=== PATIENT | female | born 1945 | race Caucasian/White ===

== ENCOUNTER 2018-07-08 06:36 | Inpatient (IN) | payer SELFPAY ==
[~2018-07-08] VITALS: Ht 165.1 cm; Wt 65.8 kg
[2018-07-08] MEDS ORDERED: [UNRECOGNIZED DRUG - OTHER] PO (06:53)
[2018-07-08] MEDS ORDERED: CALCIUM SUPPLEMENT PO (06:53)
--- NOTE | 2018-07-08 06:58 | NUR ---
ALL CLOTHING REMOVED. PT IN HOSPITAL GOWN. PT PLACED ON ALL VITALS MONITORS. EKG BEING DONE AT THIS TIME. BEDSIDE REPORT GIVEN TO RUPAL Mariee RN. GLORIA JORGENSENILS UP.
--- NOTE | 2018-07-08 06:59 | NUR ---
report received from Robbie RN, patient in bed sleeping lightly, vss on room air, ekg at bedside now.
[2018-07-08 07:33] LABS: BASOPHILS # (AUTO) 0.02 x10^3/uL (0-0.1); BASOPHILS % (AUTO) 1 % (0-1); EOSINOPHILS # (AUTO) 0.05 x10^3/uL (0-0.4); EOSINOPHILS % (AUTO) 1 % (1-7); LYMPHOCYTES # (AUTO) 0.96 x10^3/uL (1-3.4); LYMPHOCYTES % (AUTO) 20 % (22-44); MD NO; MEAN CORPUSCULAR HEMOGLOBIN 32.3 pg (27.0-34.8); MEAN CORPUSCULAR HGB CONC 32.8 g/dL (32.4-35.8); MEAN CORPUSCULAR VOLUME 98.5 fL (80-100); MEAN PLATELET VOLUME 8.8 fL (7.4-10.4); MONOCYTES # (AUTO) 0.29 x10^3/uL (0.2-0.8); MONOCYTES % (AUTO) 6 % (2-9); NEUTROPHILS # (AUTO) 3.47 x10^3/uL (1.8-6.8); NEUTROPHILS % (AUTO) 73 % (42-75); PLATELET COUNT 200 x10^3/uL (130-400); RED BLOOD COUNT 4.09 x10^6/uL (3.82-5.3); RED CELL DISTRIBUTION WIDTH 14.6 % (9.6-15.2)
--- NOTE | 2018-07-08 07:35 | NUR ---
Lab has been to bedside for draw and blood cx, patient off unit for imaging now, this RN ready to perform straight cath upon patient's return.
[2018-07-08 07:42] LABS: INTERNATIONAL NORMALIZED RATIO 1.09 (0.93-1.1); PROTHROMBIN TIME 11.5 Seconds (9.6-11.5)
[2018-07-08 07:46] LABS: ALANINE AMINOTRANSFERASE 27 U/L (12-78); ALBUMIN 3.5 g/dL (3.4-5.0); ANION GAP 10 mmol/L (5-15); CALCIUM 8.5 mg/dL (8.5-10.1); CHLORIDE 97 mmol/L (98-107)
[2018-07-08 07:51] LABS: ALKALINE PHOSPHATASE 77 U/L (45-117); CREATININE 0.92 mg/dL (0.55-1.02); TOTAL PROTEIN 7.3 g/dL (6.4-8.2)
[2018-07-08 08:05] LABS: ACETONE, SERUM Small (20mg/dL) mg/dL (Negative)
--- NOTE | 2018-07-08 08:33 | NUR ---
iv and straight caths attempted by this RN without success, entering orders for IV potassium, patient to be NPO for now, patient safety maintained and reports no pain.
[2018-07-08] MEDS ORDERED: POTASSIUM CHLORIDE 40 MEQ in SODIUM CHLORIDE 0.9% 500 ML IV ONE (09:00)
--- NOTE | 2018-07-08 09:11 | NUR ---
Straight catheter by Abbe Guerrier and this RN, purulent urine obtained with sterile technique, pericare and skin care conducted, IVs started by Abbe Guerrier, IV potassium sent from pharmacy and running now on IV pump per JUL, patient had one episode of scant brown/clear emesis, HOB lifted to 45 degrees, [facility] and at bedside, patient encouraged to cough. patient remains lethargic but slightly improved, no pain, disoriented to time but re-oriented and AOx4 now. MD updated of emesis, patient reports no nausea now, blankets provided and call light at hand
[2018-07-08 09:31] LABS: MICROSCOPIC INDICATED
[2018-07-08 09:32] LABS: CULTURE INDICATED? YES
--- NOTE | 2018-07-08 11:02 | NUR ---
patient sleeping, rouses easily to verbal stimulus, no distress, HOB remains elevated, she states she is hungry but doesn't want to try eating, remains NPO regardless, potassium infusing per MAR, call light at hand, safety maintained.
[2018-07-08] MEDS ORDERED: CEFTRIAXONE PMX 1GM/50ML 50 ML ONE (11:24)
[2018-07-08] MEDS ORDERED: CEFTRIAXONE PMX 1GM/50ML 50 ML IV ONE (11:30)
--- NOTE | 2018-07-08 11:30 | NUR ---
plan of care discussed with md sandhu, abx ordered and infusing now, no changes to patient condition at this time.
--- NOTE | 2018-07-08 11:39 | NUR ---
TASK RN: First contact with pt. Pt resting on gurney with blankets for comfort measures. Pt has PIV fluids and antibiotics infusing per EMAR. NADN. No needs expressed. All safety measures in place. Call light is within reach. Pt has unlabored respirations equal bilaterally and is on room air. Pt arouses to voice.
--- NOTE | 2018-07-08 12:54 | NUR ---
plan of care discussed with Hospitalist Isaias, aspiration risks discussed, NPO status maintained, Isaias has stated the patient is DNR status now, no acute changes noted.
[2018-07-08] MEDS ORDERED: GLUCAGON 1 MG IM PRN (13:00)
[2018-07-08] MEDS ORDERED: DEXTROSE 50%, 50ML SYRINGE IVPush PRN (13:00)
[2018-07-08] MEDS ORDERED: DEXTROSE 4 GM TAB.CHEW PO PRN (13:00)
--- NOTE | 2018-07-08 13:44 | NUR ---
report to Abbe Marin, patient RTG status now
--- NOTE | 2018-07-08 14:04 | NUR ---
patient going upstairs by orlando wood
[2018-07-08 14:46] VITALS: BP 149/93
[2018-07-08] MEDS: BISACODYL 10 MG SUPP PR SCH (17:33)
[2018-07-08] MEDS: ENOXAPARIN 40 MG/0.4 ML SQ SCH (17:34)
[2018-07-08] MEDS: D5%-0.45NACL+KCL 40MEQ 1,000 ML IV SCH (17:34)
[2018-07-08 18:35] LABS: FREE T4 (FREE THYROXINE) < 0.10 ng/dL (0.76-1.46)
[2018-07-08 19:11] VITALS: BP 142/88
[2018-07-08] MEDS: SODIUM CHLORIDE FLUSH 10ML SYR IVF SCH (21:00)
[2018-07-08] MEDS ORDERED: LEVOTHYROXINE 100 MCG INJ IVPush SCH (21:30)
[2018-07-09 01:55] VITALS: BP 136/82
[2018-07-09] MEDS: D5%-0.45NACL+KCL 40MEQ 1,000 ML IV SCH (04:06)
[2018-07-09 06:09] LABS: BASOPHILS # (AUTO) 0.02 x10^3/uL (0-0.1); BASOPHILS % (AUTO) 0 % (0-1); EOSINOPHILS # (AUTO) 0.02 x10^3/uL (0-0.4); EOSINOPHILS % (AUTO) 0 % (1-7); LYMPHOCYTES # (AUTO) 0.57 x10^3/uL (1-3.4); LYMPHOCYTES % (AUTO) 10 % (22-44); MD NO; MEAN CORPUSCULAR HEMOGLOBIN 32.7 pg (27.0-34.8); MEAN CORPUSCULAR HGB CONC 33.2 g/dL (32.4-35.8); MEAN CORPUSCULAR VOLUME 98.3 fL (80-100); MEAN PLATELET VOLUME 8.2 fL (7.4-10.4); MONOCYTES # (AUTO) 0.54 x10^3/uL (0.2-0.8); MONOCYTES % (AUTO) 10 % (2-9); NEUTROPHILS # (AUTO) 4.37 x10^3/uL (1.8-6.8); NEUTROPHILS % (AUTO) 79 % (42-75); PLATELET COUNT 211 x10^3/uL (130-400); RED BLOOD COUNT 3.62 x10^6/uL (3.82-5.3); RED CELL DISTRIBUTION WIDTH 14.6 % (9.6-15.2)
[2018-07-09 06:22] LABS: ANION GAP 7 mmol/L (5-15); CALCIUM 8.6 mg/dL (8.5-10.1); CHLORIDE 101 mmol/L (98-107); CREATININE 0.87 mg/dL (0.55-1.02)
[2018-07-09 06:34] VITALS: BP 154/83
[2018-07-09] MEDS ORDERED: LEVOTHYROXINE 100 MCG INJ IVPush SCH ×2 (09:00→14:00)
[2018-07-09] MEDS: SODIUM CHLORIDE FLUSH 10ML SYR IVF SCH ×2 (09:00→21:00)
[2018-07-09] MEDS: SENNA/DOCUSATE TABLET PO SCH (09:41)
[2018-07-09 12:23] VITALS: BP 120/82
[2018-07-09] MEDS: CEFTRIAXONE PMX 1GM/50ML 50 ML IV SCH (12:55)
[2018-07-09] MEDS: SODIUM CHLORIDE 0.9% 1,000 ML IV SCH (15:07)
[2018-07-09] MEDS: ENOXAPARIN 40 MG/0.4 ML SQ SCH (15:07)
[2018-07-09] MEDS: BISACODYL 10 MG SUPP PR SCH (17:00)
[2018-07-09 20:00] VITALS: BP 132/76
[2018-07-10 00:30] VITALS: BP 128/87
[2018-07-10] MEDS: SODIUM CHLORIDE 0.9% 1,000 ML IV SCH ×2 (03:45→16:23)
[2018-07-10 05:32] LABS: BASOPHILS # (AUTO) 0.01 x10^3/uL (0-0.1); BASOPHILS % (AUTO) 0 % (0-1); EOSINOPHILS # (AUTO) 0.06 x10^3/uL (0-0.4); EOSINOPHILS % (AUTO) 1 % (1-7); LYMPHOCYTES # (AUTO) 0.79 x10^3/uL (1-3.4); LYMPHOCYTES % (AUTO) 16 % (22-44); MD NO; MEAN CORPUSCULAR HEMOGLOBIN 33.5 pg (27.0-34.8); MEAN CORPUSCULAR VOLUME 98.4 fL (80-100); MEAN PLATELET VOLUME 8.8 fL (7.4-10.4); MONOCYTES # (AUTO) 0.49 x10^3/uL (0.2-0.8); MONOCYTES % (AUTO) 10 % (2-9); NEUTROPHILS # (AUTO) 3.73 x10^3/uL (1.8-6.8); NEUTROPHILS % (AUTO) 74 % (42-75); PLATELET COUNT 223 x10^3/uL (130-400); RED BLOOD COUNT 3.52 x10^6/uL (3.82-5.3); RED CELL DISTRIBUTION WIDTH 14.9 % (9.6-15.2)
[2018-07-10 05:37] LABS: ANION GAP 5 mmol/L (5-15); CALCIUM 8.3 mg/dL (8.5-10.1); CHLORIDE 104 mmol/L (98-107); CREATININE 0.85 mg/dL (0.55-1.02)
[2018-07-10 07:30] VITALS: BP 153/94
[2018-07-10] MEDS: SENNA/DOCUSATE TABLET PO SCH (09:00)
[2018-07-10] MEDS: BISACODYL 10 MG SUPP PR SCH (09:00)
[2018-07-10] MEDS: SODIUM CHLORIDE FLUSH 10ML SYR IVF SCH ×2 (09:00→20:53)
[2018-07-10] MEDS: ERGOCALCIFEROL 50,000 UNIT CAPSULE PO SCH (10:16)
[2018-07-10] MEDS: CEFTRIAXONE PMX 1GM/50ML 50 ML IV SCH (12:41)
[2018-07-10 13:20] VITALS: BP 138/87
[2018-07-10] MEDS: ENOXAPARIN 40 MG/0.4 ML SQ SCH (16:22)
[2018-07-10 18:33] VITALS: BP 169/98
[2018-07-10] MEDS ORDERED: hydrALAzine 20 MG/ML, 1ML IV PRN (19:30)
[2018-07-11 00:51] VITALS: BP 117/76
[2018-07-11 00:52] VITALS: BP 144/87
[2018-07-11 05:17] LABS: ANION GAP 6 mmol/L (5-15); CALCIUM 7.9 mg/dL (8.5-10.1); CHLORIDE 105 mmol/L (98-107); CREATININE 0.83 mg/dL (0.55-1.02)
[2018-07-11] MEDS: LEVOTHYROXINE 100 MCG TABLET PO SCH (05:54)
[2018-07-11 08:12] VITALS: BP 139/93
[2018-07-11] MEDS: SODIUM CHLORIDE FLUSH 10ML SYR IVF SCH ×2 (08:18→22:38)
[2018-07-11] MEDS: SENNA/DOCUSATE TABLET PO SCH (08:19)
[2018-07-11] MEDS: BISACODYL 10 MG SUPP PR SCH (08:19)
[2018-07-11] MEDS ORDERED: LEVOTHYROXINE 100 MCG INJ IVPush SCH (09:00)
[2018-07-11] MEDS: CEFTRIAXONE PMX 1GM/50ML 50 ML IV SCH (12:31)
[2018-07-11] MEDS: ENOXAPARIN 40 MG/0.4 ML SQ SCH (14:38)
[2018-07-11 15:45] VITALS: BP 153/84
[2018-07-11 21:39] VITALS: BP 165/104
[2018-07-11 22:11] VITALS: BP 149/89
[2018-07-12 02:07] VITALS: BP 155/88
[2018-07-12 05:01] LABS: BASOPHILS # (AUTO) 0.03 x10^3/uL (0-0.1); BASOPHILS % (AUTO) 1 % (0-1); EOSINOPHILS # (AUTO) 0.15 x10^3/uL (0-0.4); EOSINOPHILS % (AUTO) 2 % (1-7); LYMPHOCYTES # (AUTO) 0.84 x10^3/uL (1-3.4); LYMPHOCYTES % (AUTO) 13 % (22-44); MD NO; MEAN CORPUSCULAR HEMOGLOBIN 33.6 pg (27.0-34.8); MEAN CORPUSCULAR VOLUME 98.7 fL (80-100); MEAN PLATELET VOLUME 8.4 fL (7.4-10.4); MONOCYTES # (AUTO) 0.51 x10^3/uL (0.2-0.8); MONOCYTES % (AUTO) 8 % (2-9); NEUTROPHILS # (AUTO) 4.93 x10^3/uL (1.8-6.8); NEUTROPHILS % (AUTO) 76 % (42-75); PLATELET COUNT 227 x10^3/uL (130-400); RED BLOOD COUNT 3.15 x10^6/uL (3.82-5.3); RED CELL DISTRIBUTION WIDTH 15.1 % (9.6-15.2)
[2018-07-12 05:06] LABS: ALBUMIN 2.9 g/dL (3.4-5.0); ANION GAP 6 mmol/L (5-15); CALCIUM 7.9 mg/dL (8.5-10.1); CHLORIDE 107 mmol/L (98-107); CREATININE 0.75 mg/dL (0.55-1.02)
[2018-07-12] MEDS: LEVOTHYROXINE 100 MCG TABLET PO SCH (05:53)
[2018-07-12 06:33] VITALS: BP 168/67
[2018-07-12] MEDS ORDERED: MAGNESIUM SULFATE PMX 2GM/50ML 50 ML IV ONE (08:30)
[2018-07-12] MEDS: BISACODYL 10 MG SUPP PR SCH (09:00)
[2018-07-12] MEDS: SODIUM CHLORIDE FLUSH 10ML SYR IVF SCH ×2 (10:02→20:45)
[2018-07-12] MEDS: SENNA/DOCUSATE TABLET PO SCH (10:03)
[2018-07-12] MEDS ORDERED: CEFTRIAXONE PMX 1GM/50ML 50 ML IV SCH (12:00)
[2018-07-12] MEDS: ENOXAPARIN 40 MG/0.4 ML SQ SCH (15:25)
[2018-07-12 16:10] VITALS: BP 155/88
[2018-07-12 19:40] VITALS: BP 155/75
[2018-07-13 03:07] VITALS: BP 155/77
[2018-07-13] MEDS: LEVOTHYROXINE 100 MCG TABLET PO SCH (05:40)
[2018-07-13 06:04] LABS: BASOPHILS # (AUTO) 0.03 x10^3/uL (0-0.1); BASOPHILS % (AUTO) 1 % (0-1); EOSINOPHILS # (AUTO) 0.11 x10^3/uL (0-0.4); EOSINOPHILS % (AUTO) 2 % (1-7); LYMPHOCYTES # (AUTO) 0.81 x10^3/uL (1-3.4); LYMPHOCYTES % (AUTO) 15 % (22-44); MD NO; MEAN CORPUSCULAR HEMOGLOBIN 32.9 pg (27.0-34.8); MEAN CORPUSCULAR HGB CONC 33.5 g/dL (32.4-35.8); MEAN CORPUSCULAR VOLUME 98.3 fL (80-100); MEAN PLATELET VOLUME 8.6 fL (7.4-10.4); MONOCYTES # (AUTO) 0.53 x10^3/uL (0.2-0.8); MONOCYTES % (AUTO) 10 % (2-9); NEUTROPHILS # (AUTO) 4.06 x10^3/uL (1.8-6.8); NEUTROPHILS % (AUTO) 73 % (42-75); PLATELET COUNT 225 x10^3/uL (130-400); RED BLOOD COUNT 3.17 x10^6/uL (3.82-5.3)
[2018-07-13 08:10] VITALS: BP 155/89
[2018-07-13] MEDS: SENNA/DOCUSATE TABLET PO SCH (08:19)
[2018-07-13] MEDS: SODIUM CHLORIDE FLUSH 10ML SYR IVF SCH ×2 (08:20→20:51)
[2018-07-13 12:09] VITALS: BP 118/62
[2018-07-13] MEDS: ENOXAPARIN 40 MG/0.4 ML SQ SCH (14:59)
[2018-07-13] MEDS: BISACODYL 10 MG SUPP PR SCH (15:06)
[2018-07-13 21:27] VITALS: BP 147/91
[2018-07-14 00:56] VITALS: BP 143/90
[2018-07-14] MEDS: LEVOTHYROXINE 100 MCG TABLET PO SCH (05:19)
[2018-07-14 07:56] VITALS: BP 171/87
[2018-07-14] MEDS: SODIUM CHLORIDE FLUSH 10ML SYR IVF SCH ×2 (08:59→21:08)
[2018-07-14] MEDS: SENNA/DOCUSATE TABLET PO SCH ×2 (08:59→09:00)
[2018-07-14] MEDS: BISACODYL 10 MG SUPP PR SCH (09:00)
[2018-07-14 14:06] VITALS: BP 160/89
[2018-07-14] MEDS: ENOXAPARIN 40 MG/0.4 ML SQ SCH (15:17)
--- NOTE | 2018-07-14 17:33 | NUR ---
Intiated green activity sheet: 1) up in chair for meals 2) walk with nurses and walker 1-3 times a day Addendum: 07/14/18 at 1733 by Kaila Ivan PT Amended: Links added.
[2018-07-14 18:25] VITALS: BP 165/95
[2018-07-15 00:56] VITALS: BP 150/88
[2018-07-15] MEDS: LEVOTHYROXINE 100 MCG TABLET PO SCH (05:06)
[2018-07-15] MEDS: SODIUM CHLORIDE FLUSH 10ML SYR IVF SCH ×2 (07:38→19:55)
[2018-07-15] MEDS: CEFDINIR 300 MG CAPSULE PO SCH ×2 (07:38→19:55)
[2018-07-15] MEDS: BISACODYL 10 MG SUPP PR SCH (07:39)
[2018-07-15] MEDS: SENNA/DOCUSATE TABLET PO SCH (07:39)
[2018-07-15 07:49] LABS: ANION GAP 5 mmol/L (5-15); CALCIUM 8.1 mg/dL (8.5-10.1); CHLORIDE 107 mmol/L (98-107); CREATININE 0.63 mg/dL (0.55-1.02)
[2018-07-15 08:00] VITALS: BP 159/88
[2018-07-15 14:00] VITALS: BP 136/89
[2018-07-15] MEDS: ENOXAPARIN 40 MG/0.4 ML SQ SCH (14:38)
[2018-07-15 18:56] VITALS: BP 155/86
[2018-07-16] VITALS: BP 135/77
[2018-07-16] MEDS: LEVOTHYROXINE 100 MCG TABLET PO SCH (05:14)
[2018-07-16 06:58] VITALS: BP 156/88
[2018-07-16] MEDS: SODIUM CHLORIDE FLUSH 10ML SYR IVF SCH ×2 (08:05→21:00)
[2018-07-16] MEDS: CEFDINIR 300 MG CAPSULE PO SCH ×2 (08:05→20:22)
[2018-07-16] MEDS: SENNA/DOCUSATE TABLET PO SCH (08:06)
[2018-07-16] MEDS: BISACODYL 10 MG SUPP PR SCH (08:06)
[2018-07-16 12:45] VITALS: BP 143/81
[2018-07-16] MEDS: ENOXAPARIN 40 MG/0.4 ML SQ SCH (14:49)
[2018-07-16] MEDS ORDERED: LEVO100T PO (17:17)
[2018-07-16] MEDS ORDERED: ERGO500017 PO (17:17)
[2018-07-16] MEDS ORDERED: CEFD300C37 PO ×2 (17:17)
[2018-07-16 19:12] VITALS: BP 137/86
[2018-07-17 02:34] VITALS: BP 162/92
[2018-07-17] MEDS: ACETAMINOPHEN 325 MG TABLET PO PRN (05:33)
[2018-07-17] MEDS: LEVOTHYROXINE 100 MCG TABLET PO SCH (05:33)
[2018-07-17 06:58] VITALS: BP 149/82
[2018-07-17] MEDS: SENNA/DOCUSATE TABLET PO SCH (07:46)
[2018-07-17] MEDS: BISACODYL 10 MG SUPP PR SCH (07:46)
[2018-07-17] MEDS: ERGOCALCIFEROL 50,000 UNIT CAPSULE PO SCH (07:50)
[2018-07-17] MEDS: SODIUM CHLORIDE FLUSH 10ML SYR IVF SCH ×2 (07:51→23:15)
[2018-07-17 09:58] LABS: BASOPHILS # (AUTO) 0.06 x10^3/uL (0-0.1); BASOPHILS % (AUTO) 1 % (0-1); EOSINOPHILS # (AUTO) 0.11 x10^3/uL (0-0.4); EOSINOPHILS % (AUTO) 2 % (1-7); LYMPHOCYTES % (AUTO) 16 % (22-44); MD NO; MEAN CORPUSCULAR VOLUME 99.8 fL (80-100); MEAN PLATELET VOLUME 7.8 fL (7.4-10.4); MONOCYTES # (AUTO) 0.68 x10^3/uL (0.2-0.8); MONOCYTES % (AUTO) 11 % (2-9); NEUTROPHILS # (AUTO) 4.48 x10^3/uL (1.8-6.8); NEUTROPHILS % (AUTO) 71 % (42-75); PLATELET COUNT 354 x10^3/uL (130-400); RED BLOOD COUNT 3.22 x10^6/uL (3.82-5.3); RED CELL DISTRIBUTION WIDTH 15.6 % (9.6-15.2)
[2018-07-17 10:07] LABS: ANION GAP 7 mmol/L (5-15); CALCIUM 8.1 mg/dL (8.5-10.1); CHLORIDE 104 mmol/L (98-107)
[2018-07-17 10:19] LABS: CREATININE 0.65 mg/dL (0.55-1.02)
[2018-07-17 13:35] VITALS: BP 148/83
[2018-07-17] MEDS: ENOXAPARIN 40 MG/0.4 ML SQ SCH (15:03)
[2018-07-17 20:38] VITALS: BP 153/82
[2018-07-18 01:55] VITALS: BP 132/80
[2018-07-18] MEDS: ACETAMINOPHEN 325 MG TABLET PO PRN (05:39)
[2018-07-18] MEDS: LEVOTHYROXINE 100 MCG TABLET PO SCH (05:39)
[2018-07-18 08:41] VITALS: BP 158/91
[2018-07-18] MEDS: SENNA/DOCUSATE TABLET PO SCH (09:00)
[2018-07-18] MEDS: BISACODYL 10 MG SUPP PR SCH (09:00)
[2018-07-18] MEDS: SODIUM CHLORIDE FLUSH 10ML SYR IVF SCH ×2 (09:00→19:39)
[2018-07-18 13:45] VITALS: BP 127/98
[2018-07-18] MEDS: ENOXAPARIN 40 MG/0.4 ML SQ SCH (16:07)
[2018-07-18 20:22] VITALS: BP 141/83
[2018-07-19 01:14] VITALS: BP 164/89
[2018-07-19] MEDS: LEVOTHYROXINE 100 MCG TABLET PO SCH (05:46)
[2018-07-19] MEDS: ACETAMINOPHEN 325 MG TABLET PO PRN (05:50)
[2018-07-19 06:52] VITALS: BP 157/86
[2018-07-19] MEDS: SENNA/DOCUSATE TABLET PO SCH (08:34)
[2018-07-19] MEDS: BISACODYL 10 MG SUPP PR SCH (08:34)
[2018-07-19] MEDS: SODIUM CHLORIDE FLUSH 10ML SYR IVF SCH (08:34)
[2018-07-19 14:20] VITALS: BP 133/70
[2018-07-19] MEDS: ENOXAPARIN 40 MG/0.4 ML SQ SCH (16:23)
[2018-07-20] MEDS: SODIUM CHLORIDE FLUSH 10ML SYR IVF SCH ×3 (00:26→21:46)
[2018-07-20 01:40] VITALS: BP 162/84
[2018-07-20] MEDS: LEVOTHYROXINE 100 MCG TABLET PO SCH (06:20)
[2018-07-20 07:00] VITALS: BP 166/86
[2018-07-20] MEDS: SENNA/DOCUSATE TABLET PO SCH (08:56)
[2018-07-20] MEDS: BISACODYL 10 MG SUPP PR SCH (08:56)
[2018-07-20 14:00] VITALS: BP 158/84
[2018-07-20] MEDS: ENOXAPARIN 40 MG/0.4 ML SQ SCH (14:30)
[2018-07-20 21:00] VITALS: BP 155/83
[2018-07-21 01:06] VITALS: BP 149/88
[2018-07-21] MEDS: LEVOTHYROXINE 100 MCG TABLET PO SCH (05:14)
[2018-07-21] MEDS: SODIUM CHLORIDE FLUSH 10ML SYR IVF SCH ×2 (08:49→19:25)
[2018-07-21] MEDS: BISACODYL 10 MG SUPP PR SCH (08:49)
[2018-07-21] MEDS: SENNA/DOCUSATE TABLET PO SCH (08:49)
[2018-07-21 13:01] VITALS: BP 155/86
[2018-07-21] MEDS: ENOXAPARIN 40 MG/0.4 ML SQ SCH (15:19)
[2018-07-21] MEDS: ACETAMINOPHEN 325 MG TABLET PO PRN (19:24)
[2018-07-21 21:00] VITALS: BP 150/82
[2018-07-22 03:15] VITALS: BP 152/83
[2018-07-22] MEDS: LEVOTHYROXINE 100 MCG TABLET PO SCH (05:19)
[2018-07-22 07:10] VITALS: BP 154/83
[2018-07-22] MEDS: BISACODYL 10 MG SUPP PR SCH (09:00)
[2018-07-22] MEDS: SENNA/DOCUSATE TABLET PO SCH (09:00)
[2018-07-22] MEDS: SODIUM CHLORIDE FLUSH 10ML SYR IVF SCH ×2 (10:00→20:51)
[2018-07-22 12:37] VITALS: BP 143/75
[2018-07-22] MEDS: ENOXAPARIN 40 MG/0.4 ML SQ SCH (14:48)
[2018-07-22 19:50] VITALS: BP 147/82
[2018-07-23 01:38] VITALS: BP 165/86
[2018-07-23] MEDS: LEVOTHYROXINE 100 MCG TABLET PO SCH (05:07)
[2018-07-23 06:20] VITALS: BP 156/89
[2018-07-23] MEDS: BISACODYL 10 MG SUPP PR SCH (08:02)
[2018-07-23] MEDS: SODIUM CHLORIDE FLUSH 10ML SYR IVF SCH ×2 (08:02→20:19)
[2018-07-23] MEDS: SENNA/DOCUSATE TABLET PO SCH (08:02)
[2018-07-23 13:18] VITALS: BP 137/76
[2018-07-23] MEDS: ENOXAPARIN 40 MG/0.4 ML SQ SCH (15:11)
[2018-07-23] MEDS: ACETAMINOPHEN 325 MG TABLET PO PRN ×2 (15:11→22:25)
[2018-07-23 19:27] VITALS: BP 126/73
[2018-07-24 01:04] VITALS: BP 134/79
[2018-07-24] MEDS: LEVOTHYROXINE 100 MCG TABLET PO SCH (05:04)
[2018-07-24 07:20] VITALS: BP 163/89
[2018-07-24] MEDS: BISACODYL 10 MG SUPP PR SCH (09:00)
[2018-07-24] MEDS: SENNA/DOCUSATE TABLET PO SCH (09:00)
[2018-07-24] MEDS: SODIUM CHLORIDE FLUSH 10ML SYR IVF SCH ×2 (11:25→19:09)
[2018-07-24] MEDS: ERGOCALCIFEROL 50,000 UNIT CAPSULE PO SCH (11:26)
[2018-07-24 13:18] VITALS: BP 136/77
[2018-07-24] MEDS: ENOXAPARIN 40 MG/0.4 ML SQ SCH (14:58)
[2018-07-24 18:49] VITALS: BP 156/88
[2018-07-25 01:20] VITALS: BP 139/92
[2018-07-25] MEDS: LEVOTHYROXINE 100 MCG TABLET PO SCH (05:01)
[2018-07-25 05:09] LABS: CREATININE 0.55 mg/dL (0.55-1.02)
[2018-07-25 07:00] VITALS: BP 160/83
[2018-07-25] MEDS: SENNA/DOCUSATE TABLET PO SCH (09:00)
[2018-07-25] MEDS: BISACODYL 10 MG SUPP PR SCH (09:00)
[2018-07-25 12:41] VITALS: BP 163/86
[2018-07-25] MEDS: ENOXAPARIN 40 MG/0.4 ML SQ SCH (16:49)
[2018-07-25] MEDS: SODIUM CHLORIDE FLUSH 10ML SYR IVF SCH ×2 (16:50→21:25)
[2018-07-25 18:32] VITALS: BP 144/85
[2018-07-26 00:13] VITALS: BP 127/76
[2018-07-26] MEDS: LEVOTHYROXINE 100 MCG TABLET PO SCH (05:07)
[2018-07-26 08:23] VITALS: BP 166/93
[2018-07-26] MEDS: BISACODYL 10 MG SUPP PR SCH (08:39)
[2018-07-26] MEDS: SENNA/DOCUSATE TABLET PO SCH (08:39)
[2018-07-26] MEDS: SODIUM CHLORIDE FLUSH 10ML SYR IVF SCH ×2 (08:40→22:38)
[2018-07-26 14:26] VITALS: BP 146/83
[2018-07-26] MEDS: ENOXAPARIN 40 MG/0.4 ML SQ SCH (16:41)
[2018-07-26 19:51] VITALS: BP 136/82
[2018-07-27 01:47] VITALS: BP 129/78
[2018-07-27] MEDS: LEVOTHYROXINE 100 MCG TABLET PO SCH (06:13)
[2018-07-27 06:58] VITALS: BP 155/81
[2018-07-27] MEDS: SENNA/DOCUSATE TABLET PO SCH (09:00)
[2018-07-27] MEDS: BISACODYL 10 MG SUPP PR SCH (09:00)
[2018-07-27] MEDS: SODIUM CHLORIDE FLUSH 10ML SYR IVF SCH ×2 (09:00→23:50)
[2018-07-27 12:39] VITALS: BP 135/88
[2018-07-27] MEDS: ENOXAPARIN 40 MG/0.4 ML SQ SCH (16:35)
[2018-07-27 19:04] VITALS: BP 128/82
[2018-07-28 01:54] VITALS: BP 119/79
[2018-07-28 05:13] LABS: CREATININE 0.66 mg/dL (0.55-1.02)
[2018-07-28] MEDS: LEVOTHYROXINE 100 MCG TABLET PO SCH (05:41)
[2018-07-28 07:15] VITALS: BP 149/82
[2018-07-28] MEDS: BISACODYL 10 MG SUPP PR SCH (08:52)
[2018-07-28] MEDS: SODIUM CHLORIDE FLUSH 10ML SYR IVF SCH ×2 (08:52→20:31)
[2018-07-28] MEDS: SENNA/DOCUSATE TABLET PO SCH (08:52)
[2018-07-28 12:01] VITALS: BP 132/75
[2018-07-28] MEDS: ENOXAPARIN 40 MG/0.4 ML SQ SCH (16:28)
[2018-07-28 19:43] VITALS: BP 143/78
[2018-07-29 01:44] VITALS: BP_SYST 146; BP_SYST 157; BP_DIAS 76; BP_DIAS 87
[2018-07-29] MEDS: LEVOTHYROXINE 100 MCG TABLET PO SCH (05:45)
[2018-07-29 06:35] VITALS: BP 145/79
[2018-07-29] MEDS: SODIUM CHLORIDE FLUSH 10ML SYR IVF SCH ×2 (07:43→19:21)
[2018-07-29] MEDS: BISACODYL 10 MG SUPP PR SCH (07:43)
[2018-07-29] MEDS: SENNA/DOCUSATE TABLET PO SCH (07:43)
[2018-07-29 13:00] VITALS: BP 167/105
[2018-07-29 15:29] VITALS: BP 127/72
[2018-07-29] MEDS: ENOXAPARIN 40 MG/0.4 ML SQ SCH (16:27)
[2018-07-29 20:18] VITALS: BP 134/81
[2018-07-30 01:30] VITALS: BP 129/79
[2018-07-30] MEDS: LEVOTHYROXINE 100 MCG TABLET PO SCH (05:23)
[2018-07-30 06:23] LABS: CALCIUM 8.5 mg/dL (8.5-10.1); CHLORIDE 108 mmol/L (98-107)
[2018-07-30 06:37] LABS: ANION GAP 5 mmol/L (5-15); CREATININE 0.68 mg/dL (0.55-1.02); FREE T4 (FREE THYROXINE) 1.08 ng/dL (0.76-1.46)
[2018-07-30] MEDS ORDERED: BISACODYL 10 MG SUPP PR PRN (07:30)
[2018-07-30 09:18] VITALS: BP 150/82
[2018-07-30 15:21] VITALS: BP 166/96
[2018-07-30] MEDS: ACETAMINOPHEN 325 MG TABLET PO PRN (15:37)
[2018-07-30] MEDS: SODIUM CHLORIDE FLUSH 10ML SYR IVF SCH ×2 (15:38→21:00)
[2018-07-30] MEDS: ENOXAPARIN 40 MG/0.4 ML SQ SCH (18:16)
[2018-07-30] MEDS: CARVEDILOL 3.125 MG TABLET PO SCH (18:16)
[2018-07-30 18:38] VITALS: BP 145/78
[2018-07-30] MEDS: SENNA/DOCUSATE TABLET PO SCH (21:41)
[2018-07-31 00:07] VITALS: BP 135/77
[2018-07-31 05:55] LABS: CREATININE 0.59 mg/dL (0.55-1.02)
[2018-07-31] MEDS: CARVEDILOL 3.125 MG TABLET PO SCH ×2 (05:57→17:13)
[2018-07-31] MEDS: LEVOTHYROXINE 100 MCG TABLET PO SCH (05:57)
[2018-07-31 07:35] VITALS: BP 158/83
[2018-07-31 13:00] VITALS: BP 140/82
[2018-07-31] MEDS: ERGOCALCIFEROL 50,000 UNIT CAPSULE PO SCH (13:27)
[2018-07-31] MEDS: SODIUM CHLORIDE FLUSH 10ML SYR IVF SCH ×2 (13:27→21:10)
[2018-07-31] MEDS: ENOXAPARIN 40 MG/0.4 ML SQ SCH (17:13)
[2018-07-31 19:46] VITALS: BP 132/75
[2018-07-31] MEDS: SENNA/DOCUSATE TABLET PO SCH (21:00)
[2018-08-01 00:15] VITALS: BP 139/78
[2018-08-01] MEDS: CARVEDILOL 3.125 MG TABLET PO SCH ×2 (05:50→20:31)
[2018-08-01] MEDS: LEVOTHYROXINE 100 MCG TABLET PO SCH (05:50)
[2018-08-01 07:20] VITALS: BP 137/73
[2018-08-01] MEDS: SODIUM CHLORIDE FLUSH 10ML SYR IVF SCH ×2 (08:55→20:32)
[2018-08-01 14:00] VITALS: BP 121/70
[2018-08-01 19:00] VITALS: BP 142/78
[2018-08-01] MEDS: ENOXAPARIN 40 MG/0.4 ML SQ SCH (20:31)
[2018-08-01] MEDS: SENNA/DOCUSATE TABLET PO SCH (20:31)
[2018-08-02 00:11] VITALS: BP 129/71
[2018-08-02] MEDS: LEVOTHYROXINE 100 MCG TABLET PO SCH (05:44)
[2018-08-02] MEDS: CARVEDILOL 3.125 MG TABLET PO SCH ×2 (05:44→17:52)
[2018-08-02 08:00] VITALS: BP 121/70
[2018-08-02] MEDS: SODIUM CHLORIDE FLUSH 10ML SYR IVF SCH ×2 (09:00→20:26)
[2018-08-02 15:51] VITALS: BP 129/71
[2018-08-02] MEDS: ENOXAPARIN 40 MG/0.4 ML SQ SCH (17:52)
[2018-08-02 18:15] VITALS: BP 143/82
[2018-08-02] MEDS: SENNA/DOCUSATE TABLET PO SCH (20:26)
[2018-08-03] VITALS: BP 123/75
[2018-08-03] MEDS: CARVEDILOL 3.125 MG TABLET PO SCH ×2 (06:10→18:23)
[2018-08-03] MEDS: LEVOTHYROXINE 100 MCG TABLET PO SCH (06:11)
[2018-08-03 07:34] VITALS: BP 137/56
[2018-08-03] MEDS: SODIUM CHLORIDE FLUSH 10ML SYR IVF SCH ×2 (10:02→19:43)
[2018-08-03 12:31] VITALS: BP 155/76
[2018-08-03] MEDS: ENOXAPARIN 40 MG/0.4 ML SQ SCH (18:23)
[2018-08-03] MEDS: SENNA/DOCUSATE TABLET PO SCH (19:42)
[2018-08-03 19:47] VITALS: BP 110/70
[2018-08-03] MEDS: ACETAMINOPHEN 325 MG TABLET PO PRN (19:55)
[2018-08-04 01:13] VITALS: BP 120/68
[2018-08-04] MEDS: LEVOTHYROXINE 100 MCG TABLET PO SCH (05:54)
[2018-08-04] MEDS: CARVEDILOL 3.125 MG TABLET PO SCH ×2 (05:54→17:50)
[2018-08-04 06:38] VITALS: BP 139/77
[2018-08-04] MEDS: SODIUM CHLORIDE FLUSH 10ML SYR IVF SCH ×2 (09:00→20:24)
[2018-08-04 12:02] VITALS: BP 132/73
[2018-08-04] MEDS: ENOXAPARIN 40 MG/0.4 ML SQ SCH (17:51)
[2018-08-04 20:00] VITALS: BP 113/65
[2018-08-04] MEDS: SENNA/DOCUSATE TABLET PO SCH (20:24)
[2018-08-05 01:28] VITALS: BP 149/84
[2018-08-05 06:23] VITALS: BP 146/82
[2018-08-05] MEDS: CARVEDILOL 3.125 MG TABLET PO SCH ×2 (06:24→17:28)
[2018-08-05] MEDS: LEVOTHYROXINE 100 MCG TABLET PO SCH (06:24)
[2018-08-05] MEDS: SODIUM CHLORIDE FLUSH 10ML SYR IVF SCH ×2 (09:57→20:03)
[2018-08-05 14:15] VITALS: BP 116/75
[2018-08-05] MEDS: ENOXAPARIN 40 MG/0.4 ML SQ SCH (17:28)
[2018-08-05 19:03] VITALS: BP 129/76
[2018-08-05] MEDS: SENNA/DOCUSATE TABLET PO SCH (20:07)
[2018-08-06 01:26] VITALS: BP 136/73
[2018-08-06] MEDS: CARVEDILOL 3.125 MG TABLET PO SCH ×2 (06:19→18:22)
[2018-08-06] MEDS: LEVOTHYROXINE 100 MCG TABLET PO SCH (06:19)
[2018-08-06 07:18] VITALS: BP 129/77
[2018-08-06] MEDS: SODIUM CHLORIDE FLUSH 10ML SYR IVF SCH ×2 (09:00→21:00)
[2018-08-06 12:31] VITALS: BP 131/71
[2018-08-06] MEDS: ENOXAPARIN 40 MG/0.4 ML SQ SCH (17:57)
[2018-08-06 18:37] VITALS: BP 148/75
[2018-08-06] MEDS: SENNA/DOCUSATE TABLET PO SCH (21:00)
[2018-08-07 01:35] VITALS: BP 151/80
[2018-08-07] MEDS: LEVOTHYROXINE 100 MCG TABLET PO SCH (05:41)
[2018-08-07] MEDS: CARVEDILOL 3.125 MG TABLET PO SCH ×2 (05:41→17:30)
[2018-08-07 07:47] VITALS: BP 181/71
[2018-08-07] MEDS: SODIUM CHLORIDE FLUSH 10ML SYR IVF SCH ×2 (09:00→19:50)
[2018-08-07] MEDS: ERGOCALCIFEROL 50,000 UNIT CAPSULE PO SCH (09:50)
[2018-08-07 14:00] VITALS: BP 118/70
[2018-08-07] MEDS: LISINOPRIL 5 MG TABLET PO SCH (14:00)
[2018-08-07] MEDS: ENOXAPARIN 40 MG/0.4 ML SQ SCH (17:30)
[2018-08-07] MEDS: SENNA/DOCUSATE TABLET PO SCH (19:50)
[2018-08-07 19:58] VITALS: BP 111/59
[2018-08-08 00:35] VITALS: BP 143/75
[2018-08-08 05:22] LABS: CREATININE 0.56 mg/dL (0.55-1.02)
[2018-08-08] MEDS: LEVOTHYROXINE 100 MCG TABLET PO SCH (06:07)
[2018-08-08] MEDS: CARVEDILOL 3.125 MG TABLET PO SCH ×2 (06:07→18:17)
[2018-08-08 06:59] VITALS: BP 143/78
[2018-08-08] MEDS: LISINOPRIL 5 MG TABLET PO SCH (08:50)
[2018-08-08] MEDS: SODIUM CHLORIDE FLUSH 10ML SYR IVF SCH ×2 (08:50→21:00)
[2018-08-08 14:23] VITALS: BP 121/70
[2018-08-08] MEDS: ENOXAPARIN 40 MG/0.4 ML SQ SCH (18:18)
[2018-08-08 19:23] VITALS: BP 116/67
[2018-08-08] MEDS: SENNA/DOCUSATE TABLET PO SCH (21:03)
[2018-08-09 00:17] VITALS: BP 119/77
[2018-08-09 05:30] VITALS: BP 149/82
[2018-08-09] MEDS: LEVOTHYROXINE 100 MCG TABLET PO SCH (05:38)
[2018-08-09] MEDS: CARVEDILOL 3.125 MG TABLET PO SCH ×2 (05:38→17:45)
[2018-08-09 06:42] VITALS: BP 120/70
[2018-08-09] MEDS: LISINOPRIL 5 MG TABLET PO SCH (09:56)
[2018-08-09] MEDS: SODIUM CHLORIDE FLUSH 10ML SYR IVF SCH ×2 (09:56→21:37)
[2018-08-09 13:44] VITALS: BP 107/65
[2018-08-09] MEDS: ENOXAPARIN 40 MG/0.4 ML SQ SCH (17:45)
[2018-08-09 19:46] VITALS: BP 136/68
[2018-08-09] MEDS: SENNA/DOCUSATE TABLET PO SCH (21:00)
[2018-08-10 01:23] VITALS: BP 116/77
[2018-08-10] MEDS: CARVEDILOL 3.125 MG TABLET PO SCH ×2 (06:10→18:28)
[2018-08-10] MEDS: LEVOTHYROXINE 100 MCG TABLET PO SCH (06:10)
[2018-08-10 07:09] VITALS: BP 135/75
[2018-08-10] MEDS: SODIUM CHLORIDE FLUSH 10ML SYR IVF SCH ×2 (08:40→19:20)
[2018-08-10] MEDS: LISINOPRIL 5 MG TABLET PO SCH (08:40)
[2018-08-10 14:47] VITALS: BP 117/71
[2018-08-10] MEDS: ENOXAPARIN 40 MG/0.4 ML SQ SCH (18:28)
[2018-08-10 19:07] VITALS: BP 131/76
[2018-08-10] MEDS: SENNA/DOCUSATE TABLET PO SCH (19:20)
[2018-08-11 02:55] VITALS: BP 139/77
[2018-08-11] MEDS: CARVEDILOL 3.125 MG TABLET PO SCH ×2 (05:40→17:10)
[2018-08-11] MEDS: LEVOTHYROXINE 100 MCG TABLET PO SCH (05:40)
[2018-08-11 06:10] LABS: CREATININE 0.61 mg/dL (0.55-1.02)
[2018-08-11 07:16] VITALS: BP 128/71
[2018-08-11] MEDS: SODIUM CHLORIDE FLUSH 10ML SYR IVF SCH ×2 (08:50→19:45)
[2018-08-11] MEDS: LISINOPRIL 5 MG TABLET PO SCH (08:50)
[2018-08-11] MEDS ORDERED: CARV3.1212 PO (11:16)
[2018-08-11] MEDS ORDERED: LISI5TAB7 PO (11:16)
[2018-08-11 13:18] VITALS: BP 158/77
[2018-08-11] MEDS: ENOXAPARIN 40 MG/0.4 ML SQ SCH (17:10)
[2018-08-11] MEDS: SENNA/DOCUSATE TABLET PO SCH (19:45)
[2018-08-11 19:55] VITALS: BP 120/66
[2018-08-12 00:47] VITALS: BP 160/86
[2018-08-12] MEDS: LEVOTHYROXINE 100 MCG TABLET PO SCH (05:30)
[2018-08-12] MEDS: CARVEDILOL 3.125 MG TABLET PO SCH (05:31)
[2018-08-12 06:41] VITALS: BP 148/80
[2018-08-12] MEDS: SODIUM CHLORIDE FLUSH 10ML SYR IVF SCH (09:00)
[2018-08-12] MEDS: LISINOPRIL 5 MG TABLET PO SCH (09:35)
== END 2018-08-12 10:26 | disposition home or self-care (01) | DRG 644 ==
LOC: ED 07:54 → EDIP 12:58 → 3NE 14:08 → OBSVTOIN 07-10 12:22
PROVIDERS: ADMIT Internal Medicine; ATTEND Internal Medicine
PROC: 0T9B70Z Drainage of Bladder with Drainage Device, Via Natural or Artificial Opening (ICD-10-PCS; principal; 2018-07-08)
DX: E03.9 Hypothyroidism, unspecified (principal); N39.0 Urinary tract infection, site not specified; E87.1 Hypo-osmolality and hyponatremia; E87.2 Acidosis; B96.1 Klebsiella pneumoniae [K. pneumoniae] as the cause of diseases classified elsewhere; E16.2 Hypoglycemia, unspecified; E55.9 Vitamin D deficiency, unspecified; E86.0 Dehydration; R62.7 Adult failure to thrive; E87.6 Hypokalemia; I10 Essential (primary) hypertension; K59.00 Constipation, unspecified; Z66 Do not resuscitate; Z87.891 Personal history of nicotine dependence; Z68.24 Body mass index [BMI] 24.0-24.9, adult
CPT/HCPCS: 36415; 71045; 74018; 80048; 80053; 81001; 82010; 82040; 82140; 82306; 82565; 82607; 82962; 83605; 83690; 83735; 83880; 84100; 84439; 84443; 84481; 85025; 85610; 85730; 87040; 87077; 87086; 87186; 93005; 96365; 96367; G0378; J0696; J1650; J3480; 92522-GN; 92523-GN; G0515-GN; J3475; J7030; J7040